=== PATIENT | male | born 1965 | race African-American/Black ===

== ENCOUNTER 2020-07-12 12:11 | Emergency (ER) | payer OTHER ==
[~2020-07-12] VITALS: Ht 165.1 cm; Wt 78.9 kg
--- NOTE | ~2020-07-12 | EMS ---
[address] [address] EMS Patient Care Report Name: REAL SERNA Room #: DEP RENATA Tolbert#: [id number] Admission: 07/12/20 Attend Phys: Discharge: 07/12/20 Date of : 61 Report #: [id number] THIS REPORT FOR: //name// Report Transmitted: 07/12/2020 18:[address] [facility] MED-ACT Incident [id number] @ 07/12/2020 11:37 Incident Location [address] [place] [address] Patient REAL SERNA Male, 55 Years 1965 [place] [address] Patient History IV Drug Use/Abuse,Alcohol Abuse, Patient Allergies No known allergies, Patient Medications None Reported, Chief Complaint "I am hungry" Disposition Transported No Lights/[place] Dispatch Reason Chest Pain (Non-Traumatic) Transported To [facility] Narrative EMS responded to a local business for a male subject with chest pain. Upon arrival pt is found in the care of squad 47. EMS responded from quarters without delay. Upon arrival patient has patent airway, breathing is not labored, skin is warm dry and pink. Patient communicates in full word sentences [facility] [address] [place] [address] EMS Patient Care Report Name: REAL SERNA Room #: DEP RENATA Tolbert#: [id number] Admission: 07/12/20 Attend Phys: Discharge: 07/12/20 Date of : 61 Report #: [id number] without difficulty. Patient was found sitting in local business, patient is currently homeless and does not live or take custodial in the surrounding area. Patient tells EMS he took a bus today and was dropped off at ???the wrong [employer]". Patient states he feels very tired and anytime he is dehydrated or is very hungry he begins to have chest tightness. Patient states is now has chest tightness and he believes it is related to his extreme hunger. Patient states his last meal was at breakfast today. Patient states he would like transported to a hospital in [place] which is closer to his normal sheltering area. EMS offers to transport him to [facility] which is the closest hospital to his current location. EKG is performed and 12 lead was performed without abnormal findings. Patient was given 324 of aspirin as noted. Nitroglycerin is deferred due to patient???s presumed non-cardiac cause of pain. Patient denies shortness of breath, nausea, vomiting, diarrhea, change the level of consciousness. Patient denies and has no evidence of trauma. Patient denies and has no evidence of COVID-19 symptoms are risk factors. Patient is able to ambulate several steps to the stretcher where he is buckled per department standard. Patient has no changes during transport. Patient arrived at [place] without incident or change. Initial Vitals @11:50P: 89,SpO2: 98,GA Suspected: false @12:07BP: 158/98, @PTAP: 91,BP: 163/95,SpO2: 98, @PTAP: 92,BP: 153/90,SpO2: 99, @12:00P: 80,R: 14,BP: 154/78,Pain: 6/10,GCS: 15,SpO2: 98,Revised Trauma: 12, Assessments @12:00MENTAL:No Abnormalities,SKIN:No Abnormalities,HEENT:Head/Face: No Abnormalities,Eyes: No Abnormalities,Neck/Airway: No Abnormalities,LUNG SOUNDS:General: No Abnormalities,Left Upper: No Abnormalities,Right Upper: No Abnormalities,Left Lower: No Abnormalities,Right Lower: No Abnormalities,ABDOMEN:General: No Abnormalities,Left Upper: No Abnormalities,Right Upper: No Abnormalities,Left Lower: No Abnormalities,Right Lower: No Abnormalities,PELVIS//GI:No Abnormalities,EXTREMITIES:Left Arm: No Abnormalities,Right Arm: No Abnormalities,Left Leg: No Abnormalities,Right Leg: No Abnormalities,PULSE:NEURO:No Abnormalities, Impression Dehydration Procedures @11:5012-Lead ECGResponse: UnchangedSucceeded@11:56Aspirin - [address] [address] EMS Patient Care Report Name: REAL SERNA Room #: DEP RENATA Tolbert#: [id number] Admission: 07/12/20 Attend Phys: Discharge: 07/12/20 Date of : 61 Report #: [id number] (mg) - OralResponse: Improved@12:00ALS AssessmentResponse: UnchangedFailed 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,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/95 M,PULSE: 91,RR: R,SPO2: 98 [place],ETCO2: ,BG: ,PAIN: ,GCS: , 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,BP: 153/90 M,PULSE: 92,RR: R,SPO2: 99 Ox,ETCO2: ,BG: ,PAIN: ,GCS: , 11:36,Call Received 11:36,Psap Call 11:37,Dispatched 11:38,En Route 11:46,On Scene 11:48,At Patient 11:50,12-Lead ECG,Response: UnchangedSucceeded, 11:50,BP: / M,PULSE: 89,RR: R,SPO2: 98 Ox,ETCO2: ,BG: ,PAIN: ,GCS: , 11:56,Aspirin - 324 [address] (mg) - Oral,Response: Improved 11:58,Depart Scene 12:00,ALS Assessment,Response: UnchangedFailed, 12:00,BP: 154/78 M,PULSE: 80,RR: 14 R,SPO2: 98 Ox,ETCO2: ,BG: ,PAIN: 6,GCS: 15, 12:07,BP: 158/98 M,PULSE: ,RR: R,SPO2: Ox,ETCO2: ,BG: ,PAIN: ,GCS: , 12:08,At Destination 12:29,Call Closed Disclaimer v1.1 Copyright 2020 [employer] This EMS Care Summary contains data elements from the applicable legal record (which may be displayed differently). It is designed to provide pertinent information for the following purposes: continuity of care, clinical quality, and state data reporting. The complete legal record is available to ED staff and administrators of the receiving hospital in [employer] Patient Tracker. All data is provided "as is."
[2020-07-12 12:42] LABS: ABSOLUTE NEUTROPHILS 4.7 thou/uL (1.4-8.2); BASOPHILS 0.7 % (0.0-2.0); EOSINOPHILS 0.3 % (0.0-3.0); HEMATOCRIT 38.8 % (42.0-52.0); HEMOGLOBIN 12.8 gm/dL (14.0-18.0); MCH 31.9 pg (26.0-34.0); MCV 96.7 fL (80.0-100.0); MONOCYTES 8.2 % (1.0-8.0); PLATELET COUNT 236 thou/uL (150-400); POLYS 65.8 % (36.0-66.0); RBC 4.02 mil/uL (4.50-6.00); RDW 13.7 % (10.5-14.5); WBC 7.2 thou/uL (4.0-11.0)
[2020-07-12 13:00] LABS: ANION GAP 8 mmol/L (7-16); BUN 10 mg/dL (7-18); CHLORIDE 102 mmol/L (98-107); POTASSIUM 3.8 mmol/L (3.5-5.1); SODIUM 137 mmol/L (136-145)
[2020-07-12 13:06] LABS: CALCIUM 8.9 mg/dL (8.5-10.1); CO2 27 mmol/L (21-32); CREATININE 0.9 mg/dL (0.7-1.3); GLUCOSE 114 mg/dL (74-106)
[2020-07-12 13:15] LABS: TROPONIN-I <0.06 ng/mL (<0.06)
[2020-07-12 15:53] VITALS: BP 165/74
--- NOTE | 2020-07-13 08:43 | EKG ---
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: [place] : 1965 Requested By: Wes Low Order Number: [id number] MD: Damon Salcedo Measurements Intervals [place] Rate: 81 P: -12 OK: 163 QRS: -52 QRSD: 101 T: 25 QT: 392 QTc: 455 Interpretive Statements Sinus rhythm Probable left atrial enlargement LAD, consider left anterior fascicular block Consider right ventricular hypertrophy Left ventricular hypertrophy No previous ECG available for comparison Electronically Signed On 07-13-2020 8:43:50 CDT by Damon Salcedo [email or web address] <ELECTRONICALLY SIGNED> By: Damon Salcedo MD, FAC 07/13/20 0843 1220 1220 Damon Salcedo MD, [facility] /EPI
== END 2020-07-12 15:54 | disposition home or self-care (01) ==
LOC: ER 12:11
PROVIDERS: Emergency Medicine
DX: R07.89 Other chest pain (principal); I10 Essential (primary) hypertension; F90.9 Attention-deficit hyperactivity disorder, unspecified type; Z98.890 Other specified postprocedural states